=== PATIENT | male | born 1955 | race Caucasian/White ===

== ENCOUNTER 2018-10-08 07:34 | Inpatient (IN) | payer BC ==
[2018-09-28 10:24] LABS: HEMOGLOBIN 13.9 gm/dL (14.0-18.0); MCH 30.1 pg (26.0-34.0); MCV 88.5 fL (80.0-100.0); RBC 4.63 mil/uL (4.50-6.00); RDW 13.2 % (10.5-14.5); URINE BILIRUBIN NEGATIVE (Negative); URINE BLOOD NEGATIVE (Negative); URINE CLARITY CLEAR; URINE COLOR YELLOW; URINE GLUCOSE-RANDOM* 3+ (Negative); URINE KETONES NEGATIVE (Negative); URINE LEUKOCYTES-REFLEX NEGATIVE (Negative); URINE NITRITE-REFLEX NEGATIVE (Negative); URINE PROTEIN (DIPSTICK) NEGATIVE (Negative); URINE SPECIFIC GRAVITY 1.015 (1.005-1.035); URINE UROBILINOGEN 0.2 E.U./dl (0.2-1.0); WBC 10.5 thou/uL (4.0-11.0)
[2018-09-28 10:32] LABS: CALCIUM 9.7 mg/dL (8.5-10.1); CREATININE 1.2 mg/dL (0.7-1.3); POTASSIUM 4.1 mmol/L (3.5-5.1)
[2018-09-28 10:41] LABS: PROTIME 10.1 Seconds (9.3-11.4)
[2018-09-28 23:08] LABS: GLYCOHEMOGLOBIN (HGB A1C) 7.4 % (4.8-5.6)
--- NOTE | 2018-09-29 17:20 | EKG ---
[place] [address] [facility] [place] [address] ELECTROCARDIOGRAM REPORT Name: ION HAINES Room #: PRE IN [facility].#: [id number] Admission: Attend Phys: Medardo Gordillo MD Discharge: Date of : 51 Report #: [id number] THIS REPORT FOR: //name// [facility] Test Date: 2018-09-28 Test Time: 10:15:21 Pat Name: ION HAINES Department: Room: Gender: Bean Picker: KHANH MONTELONGO : 1955 Requested By: Medardo Gordillo Order Number: [id number] MD: Saurabh Gonzalez Measurements Intervals [place] Rate: 63 P: 25 ID: 176 QRS: -53 QRSD: 107 T: -5 QT: 417 QTc: 427 Interpretive Statements Sinus rhythm Left anterior fascicular block Abnormal R-wave progression, late transition No previous ECG available for comparison Electronically Signed On 09-29-2018 17:20:48 CDT by Saurabh Gonzalez [email or web address] <ELECTRONICALLY SIGNED> By: Saurabh Gonzalez MD, [facility] 09/29/18 1720 1015 1015 Saurabh Gonzalez MD, FACC /EPI
[~2018-10-08] VITALS: Ht 182.9 cm; Wt 128.4 kg
--- NOTE | ~2018-10-08 | O ---
[facility] [place] [address] OPERATIVE REPORT Name: ION HAINES Room #: 150-3 ADM IN M.R.#: [id number] Admission: 10/08/18 Attend Phys: Medardo Gordillo MD Discharge: Date of : 51 Report #: [id number] THIS REPORT FOR: //name// CC: GLORIA CASTILLO Physician staff Medardo Gordillo DATE OF SERVICE: 10/08/2018 PREOPERATIVE DIAGNOSIS: Right hip osteoarthritis. POSTOPERATIVE DIAGNOSIS: Right hip osteoarthritis. PROCEDURE: Right total hip arthroplasty. SURGEON: Medardo Gordillo MD. INVESTOR RELATIONS COORDINATOR: Davida Kahn PA-C. INDICATIONS FOR INVESTOR RELATIONS COORDINATOR: Throughout the case, extensive retraction and manipulation of the hip was required including dislocation and reduction. This was afforded to me by my funeral home assistant. ANESTHESIA: General endotracheal. IMPLANTS: [employer]hew size 15 high offset Synergy press fit stem, size 60 R3 acetabular cup with one acetabular screw and a size 40+4 Oxinium head. ESTIMATED BLOOD LOSS: 100 mL. COMPLICATIONS: None. SPECIMENS: None. CONDITION UPON LEAVING THE OPERATING ROOM: Stable. INDICATIONS FOR PROCEDURE: The patient is a 63-year-old gentleman with severe right hip osteoarthritis. He had failed conservative measures for this and after discussion with him, he elected for right total hip arthroplasty. DESCRIPTION OF PROCEDURE: Risks, benefits, alternatives, complications were discussed in detail with the patient including but not limited to risk of anesthesia, risk of damage to nerves, arteries, blood vessels, risk for infection, bleeding, risk for continued hip pain, leg length discrepancy, instability and need for reoperation. Informed consent was obtained from the patient. Right hip was appropriately marked in the preoperative holding area. [address] [address] OPERATIVE REPORT Name: ION HAINES Room #: 150-3 ADM IN M.R.#: [id number] Admission: 10/08/18 Attend Phys: Medardo Gordillo MD Discharge: Date of : 51 Report #: [id number] Ancef was given for preoperative antibiotics. He was brought to the operating room and placed in supine position on operating room table. General anesthesia was induced without complication. He was placed in the left lateral decubitus position with the right hip uppermost. Right hip and lower extremity were prepped and draped in normal sterile fashion. Timeout was performed properly identifying the patient and procedure as well as the instrumentation. All in the operating room were in agreement. Standard posterior approach to the hip was made with 10 blade through the skin. Dissection was taken down to the fascia with Bovie cautery and a Leary elevator was used to clean off the fascia. Fresh 10 blade was used to make a fascial incision. This was taken proximally and distally with curved Granger scissor. Charnley retractor was placed. Trochanteric bursa was taken down with Bovie cautery. Piriformis tendon was identified, tagged and taken down with Bovie cautery. Short external rotators were also taken down with Bovie cautery. Capsulotomy was made and capsule ends were tagged for later repair. Hip was dislocated and there was extensive osteoarthritis of the femoral head. Femoral neck cut was made 1 cm proximal to lesser trochanter based on preoperative templating and the femoral head was removed. Deep acetabular retractors were placed. Labrum was removed sharply. Pulvinar was removed with Bovie cautery. Acetabulum was then sequentially reamed up to a size 60, at which point, there was excellent bleeding cancellous bone. A size 59 trial cup was placed, found to have a good fit. Final size 60 R3 acetabular cup was placed and seated. One acetabular screw was placed for backup fixation and polyethylene liner for a 40 head was placed. Attention was then turned to the femur. This was reamed and broached up to a size 15, at which point, the size 15 broach was stable, was trialed with a high offset neck and a 40+0 head. Hip was reduced, taken through range of motion, found to be stable, found to be somewhat short on the right compared to left. It was felt we could make up for this with the final implant. The broach was removed and final size 15 high offset Synergy press fit stem was placed. This was then trialed with a 40+4 head. Hip was reduced, taken through range of motion, found to be stable, found to have equal leg lengths. Hip was dislocated, trial head was removed and final size 40+4 Oxinium head was placed. Hip was reduced, taken through range of motion, found to be stable, found to have equal leg lengths. Wound was thoroughly irrigated with normal saline. A periarticular injection consisting of morphine, ropivacaine, epinephrine and Toradol was placed around the hip joint capsule. A gram of vancomycin was placed deep in the joint. The capsule and piriformis were repaired with 0 FiberWire. Fascia was closed with 0 Vicryl, skin was closed with 2-0 Vicryl, 3-0 Monocryl. Dermabond and a TULIO dressing was applied. The patient tolerated this procedure well and went to recovery room under care of anesthesia postoperatively. By: 1223 [id number] Medardo Gordillo MD /nt
[~2018-10-08 07:34] MED LIST: DILAUDID 2 MG TA2 MG PO; JANUMET 50-1,01 EACH PO; JARDIANCE25 MG PO; LIORESAL 10 MG10 MG PO; LOPRESSOR50 PO; VALSARTAN160 MG PO
[2018-10-08 10:05] VITALS: BP 137/82
--- NOTE | 2018-10-08 17:54 | NUR ---
RECEIVED PT APPROX 1400. TULIO DRESSING CDI. PAIN MANAGED BY MEDS ORDERED. NO NOTED SOA. NO NV. PT WORKED WITH PHYSICAL THERAPY THIS AFTERNOON. PT UP IN CHAIR AT THIS TIME. NO CONCERNS VOICED. WILL CONT. TO MONITOR.
[2018-10-09 03:30] VITALS: BP 114/69
--- NOTE | 2018-10-09 03:59 | NUR ---
ASSWUMED PT CARE 1899. PT ALERT AND ORIENTED. REASSESSMENT COMPLETE. VSS. IV DRESSING C/D/I. REPORTS PAIN, SEE EMAR. DENIES N/V. UP SBA TO BATHROOM. MAINTAINING HIP PRECAUTIONS. CALL LIGHT WITHIN REACH, WILL OCNTINUE POC UNTIL EOS.
[2018-10-09 06:03] LABS: HEMATOCRIT 39.2 % (42.0-52.0); MCH 29.7 pg (26.0-34.0)
[2018-10-09 06:05] LABS: CALCIUM 9.7 mg/dL (8.5-10.1); CREATININE 1.4 mg/dL (0.7-1.3); POTASSIUM 4.1 mmol/L (3.5-5.1)
[2018-10-09 06:12] LABS: HEMOGLOBIN 12.9 gm/dL (14.0-18.0); MCHC 32.9 g/dL (28.0-37.0); MCV 90.2 fL (80.0-100.0); PLATELET COUNT 200 thou/uL (150-400); RBC 4.35 mil/uL (4.50-6.00); RDW 13.5 % (10.5-14.5); WBC 13.6 thou/uL (4.0-11.0)
[2018-10-09 06:54] LABS: ANISOCYTOSIS 1+; LARGE PLATELETS FEW; PLATELET ESTIMATE NORMAL; POIKILOCYTOSIS 1+
[2018-10-09 08:23] VITALS: BP 156/76
[2018-10-09] MEDS ORDERED: ASPIR 8181 MG PO (13:12)
[2018-10-09] MEDS ORDERED: NEURONTIN 300300 M1 PO (13:12)
[2018-10-09] MEDS ORDERED: OXYCONTIN10 M1 ×2 (14:23→14:33)
--- NOTE | 2018-10-09 14:31 | NUR ---
ASSESSMENT-PT LIVES IN A SMALL HOUSE ALONE. HE HAS A CANE AND A C-PAP HE WAS USING PRIOR TO ADMISSION. HE HAS CRUTCHES BUT [place]OL [place] SAYS WILL NEED A WALKER FOR HOME WELL. OFFERED OPTIONS AND HE HAD NO PREFERENCE. ASKED JAQUELINE FROM [employer] TO ISSSUE A ROLLER WALKER. PT SAYS HE WILL GO TO OUTPT THERAPY AT A NEW PLACE UP BY [facility] BUT HE IS NOT SURE OF THE NAME. FOLLOWING TO ASSISST WITH DC PLANNING.
[2018-10-09] MEDS ORDERED: PAXIL10 MG (14:34)
[2018-10-09 16:18] VITALS: BP 156/76
[2018-10-09 17:00] VITALS: BP 156/76
[2018-10-09 17:08] VITALS: BP 156/76
--- NOTE | 2018-10-09 17:16 | NUR ---
FAXED REFERRAL TO [facility] SPOKE WITH MARIAM IN INTAKE SHE RECEIVED REFERRAL AND CAN ACCEPT. FAXED DC ORDERS/SUMMARY TO [facility] AND THEY WILL NOTIFY PT TIME OF VISITS.
--- NOTE | 2018-10-09 17:30 | NUR ---
PT PROGRESSING WELL. PASSED THERAPY EVALUATIONS. AMBULATING STEADY W/ WALKER AND CRUTCHES. PAIN CONTROLLED W/ DILAUDID. DISCHARGED HOME W/ HH. SON AND STAYING W/ PT FOR FEW DAYS.
[2018-10-09 17:53] VITALS: BP 156/76
--- NOTE | 2018-10-09 17:53 | NUR ---
PER THERAPY REC. DR RAMOS CONTACTED TO OBTAIN HH THERAPY ORDERS THEN WORK TOWARDS OUTPT THERAPY SOON HE IS ABLE.
== END 2018-10-09 18:30 | disposition home health service (06) | DRG 470 ==
LOC: 4E 07:34 → TBA 07:34 → PRE 08:39 → 4E 14:02 → PRE 14:13 → 4E 10-09 18:30
PROVIDERS: Nurse Practitioner; ADMIT Orthopaedic Surgery
PROC: 0SR906A Replacement of Right Hip Joint with Oxidized Zirconium on Polyethylene Synthetic Substitute, Uncemented, Open Approach (ICD-10-PCS; principal; 2018-10-08)
PROC: 5A09357 Assistance with Respiratory Ventilation, Less than 24 Consecutive Hours, Continuous Positive Airway Pressure (ICD-10-PCS; 2018-10-09)
DX: M16.11 Unilateral primary osteoarthritis, right hip (principal); G47.33 Obstructive sleep apnea (adult) (pediatric); E11.9 Type 2 diabetes mellitus without complications; I10 Essential (primary) hypertension; Z88.6 Allergy status to analgesic agent; Z79.82 Long term (current) use of aspirin; Z79.899 Other long term (current) drug therapy; Z87.442 Personal history of urinary calculi; Z90.49 Acquired absence of other specified parts of digestive tract
CPT/HCPCS: 10783; 50010; 50101; 50382; 50414; 53000; 53078; 53368; 54118; 56524; 56527; 56528; 56530; 57095; 57103; 62110; 62900; 70005

== ENCOUNTER → 2020-09-13 | Day surgery (SDC) | payer BC ==
[~2020-09-13] VITALS: Ht 182.9 cm; Wt 134.3 kg
[~2020-09-13] MED LIST changes: +ASPIR 8181 MG PO; +DILTIAZEM ER180 M2 PO; +LEVO-T50 MCG PO; +MULTI VITAMIN1 EACH PO; +NEURONTIN 300300 M1 PO; +OXYCONTIN10 M1; +PAXIL10 MG
--- NOTE | ~2020-09-13 | O ---
[facility] Everardo Lawson [facility] [place] [address] OPERATIVE REPORT Name: ION HAINES Room #: REG [facility] Romina.#: [id number] Admission: 09/13/20 Attend Phys: Sanjay Martino Discharge: Date of : 51 Report #: [id number] THIS REPORT FOR: cc: GLORIA CASTILLO Physician not on staff Sanjay Capps MD ~ DATE OF SERVICE: 09/13/2020 PREOPERATIVE DIAGNOSES: Right knee pain, medial meniscus tear, lateral meniscus tear, chondromalacia. POSTOPERATIVE DIAGNOSES: Right knee pain, effusion, medial and lateral meniscus tears, complex, grade III chondromalacia of patellofemoral joint, medial femoral condyle, grade II chondromalacia of lateral tibial plateau and medial tibial plateau. PROCEDURES PERFORMED: Right knee arthroscopy, partial medial and lateral meniscectomies, tricompartmental chondroplasty. SURGEON: Sanjay Capps MD PLOW HOLDER: Christin Sanchez PA-C. ANESTHESIA: General per LMA. FLUIDS: 700 mL crystalloid. ESTIMATED BLOOD LOSS: 2 mL. TOURNIQUET TIME: Approximately 22 minutes at 350 mmHg. DESCRIPTION OF PROCEDURE: After proper identification of the patient and the operative site in preoperative holding area, the operative site signed by myself. Prophylactic antibiotics given. The patient elected to receive a general anesthetic after reviewing the risks, benefits, alternatives, and potential complications with Dr. Leach. The patient was then brought back to the operative suite after induction of satisfactory general anesthesia. The right knee was examined, trace effusion was noted. Knee was ligamentously stable. Range of motion was symmetric compared to the preoperative assessment. Tourniquet was applied to the upper thigh. The limb was then sterilely prepped and draped in the usual manner. It was elevated for exsanguination purposes. Tourniquet was inflated. A lateral post was used for visualization purposes. A superomedial portal was created for inflow purposes. The joint was inflated with an arthroscopic pump set at 30 mmHg. An anterolateral and then an anteromedial portal were created. Examination of the patellofemoral articulation revealed some diffuse fibrillation and fraying on the medial [facility] [address] [place] [address] OPERATIVE REPORT Name: YANCYION BAER FREIDA Room #: REG [facility] M.Yared.#: [id number] Admission: 09/13/20 Attend Phys: Sanjay Martino Discharge: Date of : 51 Report #: [id number] patellar facet extending towards the central apical ridge. The trochlea demonstrated some diffuse chondromalacia with loose chondral flaps and fibrillated tissue approximately 50% of the chondral thickness and areas. Chondroplasty was performed with a motorized shaver. Medial and lateral gutters were free and clear of any loose bodies. Medial compartment knee revealed a tear of the posterior horn and root attachment that extended back towards the mid body with a combination of hand and motorized instrumentation used to perform a partial medial meniscectomy back to a stable peripheral rim. There was chondromalacia noted on the medial femoral condyle, best appreciated at approximately 30 degrees of flexion where loose chondral flaps and fibrillation was noted. Depth of these chondral lesions were greater than 50%, more fibrillated, degenerative appearing chondral surface was appreciated on the medial tibial plateau and a chondroplasty was performed here as well. Following the debridement and meniscectomy, the remaining tissues were stable to probing. The anterior and posterior cruciate ligaments were intact and stable to probing. Lateral compartment of the knee demonstrated some diffuse fibrillation that was more superficial in nature, the more medial aspect of the lateral tibial plateau, minimal degenerative changes were noted on the lateral femoral condyle and a tear of the posterior horn near the root attachment was also appreciated and a combination of hand and motorized instrumentation was used to perform a partial lateral meniscectomy. The majority of this was performed just purely within the posterior horn aspect. The knee was thoroughly irrigated with normal saline. Portals were closed with simple nylon stitch. Sterile dressing was applied. A 20 mL of 0.2% Naropin had been injected to aid in postoperative pain control, then followed by a sterile dressing. He was awakened and transferred to the recovery room in stable condition. By: [id number] [id number] Sanjay Capps MD /nt
[2020-09-13 12:00] VITALS: BP 150/92
--- NOTE | 2020-09-13 13:09 | EKG ---
[address] [place] [address] [place] [address] ELECTROCARDIOGRAM REPORT Name: YANCYION MORRIS [id number] Admission: 09/13/20 Attend Phys: Sanjay Martino Discharge: Date of : 51 Report #: [id number] [facility] Test Date: 2020-09-13 Test Time: 11:46:01 Pat Name: ION HAINES Department: Room: Gender: M Air Quality Specialist: RONNIE : 1955 Requested By: Sanjay Capps Order Number: [id number] MD: Saurabh Gonzalez Measurements Intervals [place] Rate: 64 P: 18 MN: 192 QRS: -64 QRSD: 102 T: -16 QT: 420 QTc: 434 Interpretive Statements Sinus rhythm Abnormal R-wave progression, late transition Inferior infarct, old Baseline wander in lead(s) V6 Compared to ECG 09/28/2018 10:15:21 Inferior Q waves are more pronounced Electronically Signed On 09-13-2020 13:08:41 CDT by Saurabh Gonzalez [email or web address] <ELECTRONICALLY SIGNED> By: Saurabh Gonzalez MD, [facility] 09/13/20 1308 1146 1146 Saurabh Gonzalez MD, [facility] /EPI
[2020-09-13 13:57] VITALS: BP 150/92
== END | disposition home or self-care (01) ==
LOC: OR 10:17
PROVIDERS: ATTEND Orthopaedic Surgery Sports Medicine
DX: M25.561 Pain in right knee (principal); M23.251 Derangement of posterior horn of lateral meniscus due to old tear or injury, right knee; M23.221 Derangement of posterior horn of medial meniscus due to old tear or injury, right knee; M94.261 Chondromalacia, right knee; I10 Essential (primary) hypertension; E11.9 Type 2 diabetes mellitus without complications; M19.90 Unspecified osteoarthritis, unspecified site; G47.30 Sleep apnea, unspecified; I48.91 Unspecified atrial fibrillation; Z98.890 Other specified postprocedural states; Z79.899 Other long term (current) drug therapy; Z88.8 Allergy status to other drugs, medicaments and biological substances; Z87.442 Personal history of urinary calculi; Z98.41 Cataract extraction status, right eye; Z98.42 Cataract extraction status, left eye; Z79.01 Long term (current) use of anticoagulants; Z20.822 Contact with and (suspected) exposure to COVID-19
CPT/HCPCS: 50010; 50101; 50405; 51320; 56526; 57103; 57180; 57255; 58577; 58589; 62110; 62900; 70005

== ENCOUNTER → 2021-04-02 | Outpatient (CLI) | payer BC ==
[~2021-04-02] MED LIST changes: +CELEBREX 200 M200 M1 PO
[2021-04-02 11:26] LABS: URINE BILIRUBIN NEGATIVE (Negative); URINE BLOOD NEGATIVE (Negative); URINE CLARITY CLEAR; URINE COLOR YELLOW; URINE GLUCOSE-RANDOM* 3+ (Negative); URINE KETONES NEGATIVE (Negative); URINE LEUKOCYTES-REFLEX NEGATIVE (Negative); URINE NITRITE-REFLEX NEGATIVE (Negative); URINE PROTEIN (DIPSTICK) NEGATIVE (Negative); URINE SPECIFIC GRAVITY 1.025 (1.005-1.035); URINE UROBILINOGEN 0.2 E.U./dl (0.2-1.0)
[2021-04-02 11:39] LABS: HEMATOCRIT 43.8 % (42.0-52.0); HEMOGLOBIN 14.4 gm/dL (14.0-18.0); MCH 30.4 pg (26.0-34.0); MCHC 32.9 g/dL (28.0-37.0); MCV 92.2 fL (80.0-100.0); RBC 4.75 mil/uL (4.50-6.00); RDW 14.5 % (10.5-14.5); WBC 10.1 thou/uL (4.0-11.0)
--- NOTE | 2021-04-02 11:40 | EKG ---
[place] [address] [facility] [place] [address] ELECTROCARDIOGRAM REPORT Name: ION HAINES [facility] [id number] Admission: 04/02/21 Attend Phys: Medardo Gordillo MD Discharge: Date of : 51 Report #: [id number] [facility] Test Date: 2021-04-02 Test Time: 11:29:57 Pat Name: ION HAINES Department: Room: Gender: M Wool Merchant: Sindy Fried : 1955 Requested By: Medardo Gordillo Order Number: [id number] MD: Jose Vo Measurements Intervals [place] Rate: 83 P: AL: QRS: -66 QRSD: 108 T: -5 QT: 384 QTc: 452 Interpretive Statements Atrial fibrillation Abnormal R-wave progression, early transition Inferior infarct, old Compared to ECG 09/13/2020 11:46:01 Sinus rhythm no longer present Myocardial infarct finding still present Electronically Signed On 04-02-2021 11:39:56 DIGITAL CARTOGRAPHIC TECHNICIAN by Jose Vo [email or web address] <ELECTRONICALLY SIGNED> By: Jose Vo MD, [facility] 04/02/21 1139 1129 1129 Jose Vo MD, [facility] /EPI
[2021-04-02 11:42] LABS: ALBUMIN 3.9 g/dL (3.4-5.0); CALCIUM 9.9 mg/dL (8.5-10.1); CREATININE 1.2 mg/dL (0.7-1.3); POTASSIUM 4.1 mmol/L (3.5-5.1)
[2021-04-02 11:46] LABS: INR 1.02; PROTIME 11.1 Seconds (10.5-12.1)
[2021-04-04 08:08] LABS: GLYCOHEMOGLOBIN (HGB A1C) 8.1 % (4.8-5.6)
== END ==
LOC: PAC 05:40
PROVIDERS: ATTEND Orthopaedic Surgery
DX: I48.91 Unspecified atrial fibrillation (principal); M17.11 Unilateral primary osteoarthritis, right knee; E11.9 Type 2 diabetes mellitus without complications; R94.31 Abnormal electrocardiogram [ECG] [EKG]; Z01.818 Encounter for other preprocedural examination